=== PATIENT | female | born 1995 | race African-American/Black ===

== ENCOUNTER 2021-01-02 23:57 | Emergency (ER) | payer OTHER ==
[2021-01-03] MEDS ORDERED: Acetaminophen 500 MG TAB ONE (02:07)
[2021-01-03] MEDS ORDERED: Ibuprofen 800 MG TAB ONE (02:07)
== END 2021-01-03 02:11 | disposition home or self-care (01) ==
LOC: ERS 23:57
DX: K08.89 Other specified disorders of teeth and supporting structures (principal); F17.200 Nicotine dependence, unspecified, uncomplicated
CPT/HCPCS: 99282